=== PATIENT | female | born 2000 | race Caucasian/White ===

== ENCOUNTER 2022-03-28 12:12 | Emergency (ER) | payer OTHER | END 2022-03-28 13:09 | disposition left against medical advice (07) | LOC: CSHERS 12:12 | DX: Z53.21 Procedure and treatment not carried out due to patient leaving prior to being seen by health care provider (principal) ==

== ENCOUNTER 2023-04-17 09:08 | Emergency (ER) | payer OTHER, SELFPAY | END 2023-04-17 09:50 | disposition left against medical advice (07) | LOC: CSHERS 09:08 | DX: Z53.21 Procedure and treatment not carried out due to patient leaving prior to being seen by health care provider (principal) ==